=== PATIENT | female | born 1995 | race Caucasian/White ===

== ENCOUNTER 2017-06-28 12:45 | Emergency (ER) | payer BC ==
--- NOTE | 2017-06-28 13:09 | PDOC ---
History of Present Illness - General Chief Complaint: Cold Symptoms Stated Complaint: FLU Time Seen by Provider: 06/28/17 12:46 History Source: Patient (Patient walked in with her mother complaining of frequent bowel movements, loose, nausea and vomiting , days after returning from trip in [place] ) Exam Limitations: No Limitations - History of Present Illness Timing/Duration: 24 hours, getting worse Severity: moderate, severe Modifying Factors: improves with: rest Associated Symptoms: reports: loss of appetite, malaise, nausea/vomiting, weakness Past History - Travel Traveled outside of the country in the last 30 days: Yes Close contact w/someone who was outside of country & ill: Yes - Past Medical History Allergies/Adverse Reactions: Allergies Allergy/AdvReac Type Severity Reaction Status Date / Time No Known Allergies Allergy Verified 06/28/17 13:03 Home Medications: Ambulatory Orders Escitalopram Oxalate [Lexapro -] 5 mg PO DAILY 06/28/17 Ondansetron [Ondansetron Odt] 8 mg PO BID #14 tab.rapdis 06/28/17 Review of Systems - Review of Systems Able to Perform ROS?: Yes Is the patient limited Lithuanian proficient: Yes Constitutional: Yes: Symptoms Reported, Weakness HEENTM: No: Symptoms Reported, See HPI, Eye Pain, Blurred Vision, Tearing, Recent change in vision, Double Vision, Cataracts, Ear Pain, Ocular Prothesis, Ear Discharge, Nose Pain, Nose Congestion, Tinnitus, Nose Bleeding, Hearing Loss , Throat Pain, Throat Swelling, Mouth Pain, Dental Problems, Difficulty Swallowing, Mouth Swelling, Other Respiratory: No: Symptoms reported, See HPI, Cough, Orthopnea, Shortness of Breath, SOB with Exertion, SOB at Rest, Stridor, Wheezing, Productive cough, Hemoptysis, Other Cardiac (ROS): No: Symptoms Reported, See HPI, Chest Pain, Edema, Irregular Heart Rate, Lightheadedness, Palpitations, Syncope, Chest Tightness, Other ABD/GI: Yes: See HPI, Diarrhea, Poor Appetite, Poor Fluid Intake Musculoskeletal: Yes: Muscle Weakness Integumentary: Yes: Symptoms Reported All Other Systems: Reviewed and Negative *Physical Exam - Physical Exam General Appearance: Yes: Nourished, Appropriately Dressed, Moderate Distress, Thin HEENT: positive: KAYLAN, Other (Dry oral mucosae.) Neck: positive: Supple Respiratory/Chest: positive: Lungs Clear Cardiovascular: positive: Regular Rate, S1, S2 Gastrointestinal/Abdominal: positive: Flat, Increased Bowel Sounds Lymphatic: positive: Adenopathy Musculoskeletal: positive: Normal Inspection Extremity: positive: Normal Capillary Refill Integumentary: positive: Dry, Pale ED Treatment Course - LABORATORY CBC & Chemistry Diagram: 06/28/17 13:10 06/28/17 13:10 Medical Decision Making - Medical Decision Making Patient seen immediately from arrival, iv started. Plan : dg and Rx for dehydration. Observed every hour by the hour for 3 hours. During her stay she received NS x 2000ml, Zofran with marked improvement 06/30/17 19:32 *DC/Admit/Observation/Transfer Diagnosis at time of Disposition: Gastroenteritis, Dehydration - Discharge Dispostion Disposition: HOME Condition at time of disposition: Improved Admit: No - Prescriptions Prescriptions: Ondansetron [Ondansetron Odt] 8 mg PO BID #14 tab.rapdis - Referrals Referrals: Cristofer Galvan [Non Staff, Medical] - - Patient Instructions - Post Discharge Activity Forms/Work/School Notes: Back to Work, Back to School
[2017-06-28] MEDS ORDERED: SODIUM CHLORIDE 1,000 ML IV ONE (13:10)
[2017-06-28 13:11] VITALS: BP 115/62; PULSE 70; TEMP 97.9; BMI 18.6
[2017-06-28] MEDS ORDERED: ONDANSETRON 4 MG/2 ML VIAL IVPUSH ONE (13:11)
[2017-06-28] MEDS ORDERED: ONDANSETRON 4 MG/2 ML VIAL ONE (13:28)
[2017-06-28 14:01] LABS: ALBUMIN 4.6 g/dl (3.5-5.0); ALK PHOS 49 U/L (32-92); ANION GAP 8 (8-16); BLOOD UREA NITROGEN 14 mg/dl (7-18); CALCIUM 9.3 mg/dl (8.4-10.2); CHLORIDE 102 mmol/L (98-107); CO2 24 mmol/L (22-28); CREATININE 0.8 mg/dl (0.6-1.3); POTASSIUM 4.1 mmol/L (3.5-5.1); SGOT/AST 29 U/L (10-42); SGPT/ALT 24 U/L (10-40); SODIUM 134 mmol/L (136-145); TOT PROT 7.6 g/dl (6.4-8.3)
[2017-06-28 14:04] LABS: EOS % 1.7 % (0-4.5); HEMOGLOBIN 14.2 GM/dl (10.7-15.3); LYMPH % 14.8 % (8-40); MCH 31.5 pg (25.7-33.7); MCHC 33.8 g/dl (32.0-36.0); MEAN CELL VOLUME 93.3 fl (80-96); MEAN PLT VOLUME 8.7 fl (7.5-11.1); MONO % 10.7 % (3.8-10.2); NEUT % 72.6 % (42.8-82.8); PLATELET COUNT 183 K/MM3 (134-434); RDW 11.9 % (11.6-15.6); WHITE BLOOD COUNT 5.9 K/mm3 (4.0-10.8)
[2017-06-28 14:30] LABS: BILIRUBIN,TOTAL 0.4 mg/dl (0.2-1.0); GLUCOSE,RANDOM 82 mg/dl (74-106)
[2017-06-28] MEDS ORDERED: METOCLOPRAMIDE HCL INJECTION 10 MG/2 ML VIAL IVPUSH ONE (14:47)
[2017-06-28] MEDS ORDERED: SODIUM CHLORIDE 1,000 ML IV STA (14:47)
== END 2017-06-28 15:27 | disposition home or self-care (01) ==
LOC: FER 12:45
PROC: 3E033GC Introduction of Other Therapeutic Substance into Peripheral Vein, Percutaneous Approach (ICD-10-PCS; principal; 2017-06-28)
PROC: 3E0337Z Introduction of Electrolytic and Water Balance Substance into Peripheral Vein, Percutaneous Approach (ICD-10-PCS; 2017-06-28)
DX: K52.9 Noninfective gastroenteritis and colitis, unspecified (principal); E86.0 Dehydration
CPT/HCPCS: 36415; 80053; 85025; 99282-25